=== PATIENT | male | born 1965 | race Caucasian/White ===

== ENCOUNTER 2020-12-22 08:39 | Emergency (ER) | payer OTHER ==
[~2020-12-22 08:39] MED LIST: GLIMEPIRIDE4 MG PO; JANUVIA50 M1 PO; LISINOPRIL20 MG PO; METFORMIN HCL500 MG PO
[2020-12-22 09:57] LABS: BASOPHIL 0.6 % (0-2); EOSINOPHIL 1.9 % (0-5); LYMPHOCYTE 14.4 % (15-48); MCH 30.6 pg (25.0-31.0); MCHC 33.3 g/dL (32.0-36.0); MCV 91.9 fL (78.0-100.0); MONOCYTE 8.9 % (0-12); MPV 10.5 fL (6.0-9.5); NRBC 0; PLT 201 K/uL (150-400); RBC 4.57 M/uL (4.70-6.00); RDW 13.4 % (11.5-14.0); WBC 8.9 K/uL (4.0-10.5)
[2020-12-22 10:25] LABS: ALBUMIN 3.5 g/dL (3.4-5.0); BILIRUBIN - TOTAL 0.3 mg/dL (0.2-1.0); BUN/CREAT RATIO (CALC) 16.9 RATIO; CREATININE 0.71 mg/dL (0.67-1.17); GLOBULIN (CALCULATION) 2.7 g/dL; POTASSIUM 4.2 mmol/L (3.5-5.1); TOTAL PROTEIN 6.2 g/dL (6.4-8.2); URIC ACID 6.4 mg/dL (3.5-7.2)
[2020-12-22 10:54] LABS: WBC (FLUID) 2660 WBC/uL
[2020-12-22 11:17] LABS: CLARITY (FLUID) HAZY; COLOR (FLUID) YELLOW
[2020-12-22 11:33] LABS: RBC (FLUID) 680 RBC/uL
[2020-12-22] MEDS ORDERED: ETODOLAC500 MG PO (12:33)
[2020-12-22] MEDS ORDERED: NORCO 5-325 TA1 EACH PO (12:33)
== END 2020-12-22 12:48 | disposition home or self-care (01) ==
LOC: FER 08:39
PROVIDERS: Emergency Medicine
DX: M17.12 Unilateral primary osteoarthritis, left knee (principal); E11.9 Type 2 diabetes mellitus without complications; I10 Essential (primary) hypertension; Z79.84 Long term (current) use of oral hypoglycemic drugs; Z79.899 Other long term (current) drug therapy
CPT/HCPCS: 36415; 73560; 80053; 84550; 85025; 87070; 87205; 89051; 89060; J1885; J2001

== ENCOUNTER → 2021-01-11 | Day surgery (SDC) | payer OTHER ==
[~2021-01-11] MED LIST changes: +ETODOLAC500 MG PO; +NORCO 5-325 TA1 EACH PO
[2021-01-11 08:19] LABS: HCT 44.5 % (42.0-52.0); HGB 14.7 g/dl (13.2-18.0); MCH 30.4 pg (25.0-31.0); MCV 91.9 fL (78.0-100.0); MPV 10.7 fL (6.0-9.5); RBC 4.84 M/uL (4.70-6.00); RDW 13.2 % (11.5-14.0); WBC 8.7 K/uL (4.0-10.5)
[2021-01-11 08:36] LABS: ALBUMIN 3.9 g/dL (3.4-5.0); BILIRUBIN - TOTAL 0.7 mg/dL (0.2-1.0); BUN/CREAT RATIO (CALC) 12.3 RATIO; CREATININE 0.73 mg/dL (0.67-1.17); GLOBULIN (CALCULATION) 3.3 g/dL; POTASSIUM 4.2 mmol/L (3.5-5.1); TOTAL PROTEIN 7.2 g/dL (6.4-8.2)
== END | disposition home or self-care (01) ==
LOC: FAS 06:36
PROVIDERS: Surgery
DX: K52.9 Noninfective gastroenteritis and colitis, unspecified (principal); M19.90 Unspecified osteoarthritis, unspecified site; I10 Essential (primary) hypertension; E11.9 Type 2 diabetes mellitus without complications; Z90.49 Acquired absence of other specified parts of digestive tract; Z98.52 Vasectomy status; Z96.611 Presence of right artificial shoulder joint; Z79.899 Other long term (current) drug therapy; Z20.822 Contact with and (suspected) exposure to COVID-19
CPT/HCPCS: 36415; 80053; J1610; J2250; J2704; J7120

== ENCOUNTER 2022-06-28 05:29 | Day surgery (SDC) | payer OTHER ==
[~2022-06-28] VITALS: Ht 175 cm; Wt 107.0 kg
[~2022-06-28 05:29] MED LIST changes: +ACETAMINOPHEN500 M1 PO
[2022-06-28] MEDS ORDERED: CHILDREN'S ASPI81 MG PO (15:13)
[2022-06-29 07:37] LABS: BASOPHIL 0.2 % (0-2); EOSINOPHIL 0.1 % (0-5); HCT 36.3 % (42.0-52.0); HGB 11.9 g/dl (13.2-18.0); LYMPHOCYTE 9.6 % (15-48); MCH 30.4 pg (25.0-31.0); MCHC 32.8 g/dL (32.0-36.0); MCV 92.8 fL (78.0-100.0); MPV 10.8 fL (6.0-9.5); NEUTROPHIL 80.6 % (41-80); NRBC 0; PLT 177 K/uL (150-400); RBC 3.91 M/uL (4.70-6.00); RDW 13.6 % (11.5-14.0); WBC 13.1 K/uL (4.0-10.5)
[2022-06-29 08:16] LABS: BUN/CREAT RATIO (CALC) 18.4 RATIO; CREATININE 0.76 mg/dL (0.67-1.17); POTASSIUM 4.5 mmol/L (3.5-5.1)
[2022-06-29] MEDS ORDERED: FEOSOL325 MG PO (08:51)
[2022-06-29] MEDS ORDERED: ONDANSETRON HCL4 MG PO (10:13)
== END 2022-06-29 13:19 | disposition home health service (06) ==
LOC: FAS 05:29 → FMS 09:08 → FAS 06-29 13:19
PROVIDERS: Orthopaedic Surgery
DX: M17.12 Unilateral primary osteoarthritis, left knee (principal); I10 Essential (primary) hypertension; E11.9 Type 2 diabetes mellitus without complications; Z79.84 Long term (current) use of oral hypoglycemic drugs; Z79.899 Other long term (current) drug therapy
CPT/HCPCS: 36415; 73560; 80048; 82962; 85025; 86850; 86900; 86901; 94010; 94760; 97162; 97165; 97530-GP; C1713; C1776; J0171; J0697; J1100; J1170; J1885; J2250; J2270; J2405; J2704; J2795; J3010; J7120